=== PATIENT | female | born 1995 | race Caucasian/White ===

== ENCOUNTER 2018-03-24 10:13 | Emergency (ER) | payer OTHER ==
--- NOTE | 2018-03-24 12:33 | ED ---
Lower Extremity - HPI Summary HPI Summary: Patient here with left knee pain and swelling 3 weeks. He reports he's had this about once a year since 2014. He is not recalling acute incident to inflict pain swelling. In the past he's had an x-ray and was told to implement Rice which is helped with time. He's tried at this time and symptoms are lingering longer than usual. 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 He also feels that going up and down stairs his Bentyl more difficult as of late, with feelings of instability in the knee. Denies calf pain, swelling, numbness , tingling, weakness, chest pain, shortness of breath. He does admit his knee pain got worse after taking a 7 hour flight. He also admits to use of testosterone however reports he's had this knee pain prior to using testosterone. Denies smoking, history of cancer, personal or family history of clotting. - History of Current Complaint Hx Obtained From: Patient Pain Intensity: 3 <Bev Whalen - Last Filed: 03/24/18 18:05> <Loc Bui - Last Filed: 03/24/18 19:14> - History of Current Complaint Chief Complaint: EDExtremityLower Stated Complaint: LT KNEE PAIN Time Seen by Provider: 03/24/18 10:56 - Allergies/Home Medications Allergies/Adverse Reactions: Allergies Allergy/AdvReac Type Severity Reaction Status Date / Time No Known Allergies Allergy Verified 03/24/18 11:22 Home Medications: Home Medications NK [No Home Medications Reported] 03/24/18 [History Confirmed 03/24/18] PMH/Surg Hx/FS Hx/Imm Hx Previously Healthy: Yes Endocrine/Hematology History: Denies: Hx Anticoagulant Therapy, Hx Blood Disorders, Hx Coagulopothy Cardiovascular History: Denies: Hx Aneurysm, Hx Deep Vein Thrombosis, Hx Embolism Musculoskeletal History: Reports: Other Musculoskeletal History - Lt knee issues annual flair up since 2014 Infectious Disease History: No Infectious Disease History: Denies: Traveled Outside the [place] in Last 30 Days - Family History Known Family History: Positive: None - Social History Occupation: Employed Full-time - fast food server Lives: Dormitory/Roommates Alcohol Use: None Hx Substance Use: No Substance Use Type: Reports: None Hx Tobacco Use: No Smoking Status (MU): Never Smoked Tobacco <Bev Whalen - Last Filed: 03/24/18 18:05> Review of Systems Constitutional: Negative Negative: Fever, Chills, Fatigue Negative: Blurred Vision Negative: Sore Throat Cardiovascular: Negative Negative: Palpitations, Chest Pain Respiratory: Negative Negative: Shortness Of Breath, Cough Genitourinary: Negative Positive: Arthralgia, Myalgia, Decreased ROM, Edema Skin: Negative Neurological: Negative Psychological: Normal All Other Systems Reviewed And Are Negative: Yes <Bev Whalen - Last Filed: 03/24/18 18:05> Physical Exam Triage Information Reviewed: Yes Vital Signs On Initial Exam: Initial Vitals Temp Pulse Resp BP Pulse Ox 97.8 F 67 16 126/80 98 03/24/18 10:17 03/24/18 10:17 03/24/18 10:17 03/24/18 10:17 03/24/18 10:17 Vital Signs Reviewed: Yes Appearance: Positive: Well-Appearing, No Pain Distress - at rest, Well-Nourished Skin: Positive: Warm, Skin Color Reflects Adequate Perfusion, Dry - No erythema , ecchymosis, lesions over affected area Head/Face: Positive: Normal Head/Face Inspection Eyes: Positive: Normal, EOMI ENT: Positive: Hearing grossly normal, Pharynx normal - Mucosa moist Respiratory/Lung Sounds: Positive: Breath Sounds Present Cardiovascular: Positive: Pulses are Symmetrical in both Upper and Lower Extremities. Negative: Leg Edema Left, Leg Edema Right - Negative Homans bilaterally Musculoskeletal: Positive: Limited @ - Patient reports pain with flexion of left knee past 10; left anterior and posterior knee are swollen compared to right - bilateral joint spaces and popliteal space are tender to palpation; no gross deformity; baseline laxity is noted in right knee; special tests Limited due to patient's pain; equivocal Raymond's for positive medial meniscal injury Neurological: Positive: Normal, Sensory/Motor Intact, Alert, Oriented to Person Place, Time, CN Intact II-III Psychiatric: Positive: Normal <KobyBev - Last Filed: 03/24/18 18:05> Vital Signs On Initial Exam: Initial Vitals Temp Pulse Resp BP Pulse Ox 97.8 F 67 16 126/80 98 03/24/18 10:17 03/24/18 10:17 03/24/18 10:17 03/24/18 10:17 03/24/18 10:17 <Loc Bui - Last Filed: 03/24/18 19:14> Procedures - Procedure Summary Procedure Summary: Lt knee joint aspiration: Discussed risks and benefits w/ pt who agrees to continue w/ procedure Cleaned area with iodione - upon drying, Dr. Rubin injected with total of 15mL 1% lidocaine via medial approach between patella and femoral condyle - pt tolerated well An 18 gauge sterile needle was then inserted into same path with consistent aspiration pressure - initially scant blood was only aspirated material however synovial fluid soon followed for a total of 30cc fluid. Minimal blood loss. Area bandaged with sterile gauze and NEEL wrap followed by coban. Pt reports improvement of swelling and pain. <Bev Whalen - Last Filed: 03/24/18 18:05> Diagnostics - Vital Signs Vital Signs Temp Pulse Resp BP Pulse Ox 03/24/18 10:17 97.8 F 67 16 126/80 98 - Laboratory Result Diagrams: 03/24/18 13:33 03/24/18 13:33 Lab Statement: Any lab studies that have been ordered have been reviewed, and results considered in the medical decision making process. <Bev Whalen - Last Filed: 03/24/18 18:05> - Vital Signs Vital Signs Temp Pulse Resp BP Pulse Ox 03/24/18 10:17 97.8 F 67 16 126/80 98 - Laboratory Lab Results: Lab Results 03/24/18 03/24/18 03/24/18 Range/Units 13:33 13:33 13:33 WBC 6.4 (3.5-10.8) 10^3/ul RBC 4.64 (4.0-5.4) 10^6/ul Hgb 15.0 (12.0-16.0) g/dl Hct 43 (35-47) % MCV 92 (80-97) fL MCH 32 H (27-31) pg MCHC 35 (31-36) g/dl RDW 13 (10.5-15) % Plt Count 306 (150-450) 10^3/ul MPV 7.6 (7.4-10.4) um3 Neut % (Auto) 65.7 (38-83) % Lymph % (Auto) 24.2 L (25-47) % [place] % (Auto) 7.1 H (0-7) % Eos % (Auto) 2.0 (0-6) % Baso % (Auto) 1.0 (0-2) % Absolute Neuts (auto) 4.2 (1.5-7.7) 10^3/ul Absolute Lymphs (auto) 1.6 (1.0-4.8) 10^3/ul Absolute Monos (auto) 0.5 (0-0.8) 10^3/ul Absolute Eos (auto) 0.1 (0-0.6) 10^3/ul Absolute Basos (auto) 0.1 (0-0.2) 10^3/ul Absolute Nucleated RBC 0 10^3/ul Nucleated RBC % 0 ESR 22 H (0-14) mm/Hr Sodium 137 L (139-145) mmol/L Potassium 3.8 (3.5-5.0) mmol/L Chloride 101 (101-111) mmol/L Carbon Dioxide 28 (22-32) mmol/L Anion Gap 8 (2-11) mmol/L BUN 14 (6-24) mg/dL Creatinine 0.77 (0.51-0.95) mg/dL Est GFR ( Amer) 118.4 (>60) Est GFR (Non-Af Amer) 92.1 (>60) BUN/Creatinine Ratio 18.2 (8-20) Glucose 79 (70-100) mg/dL Lactic Acid 0.6 (0.5-2.0) mmol/L Uric Acid 6.4 (2.3-6.6) mg/dL Calcium 9.4 (8.6-10.3) mg/dL Total Bilirubin 0.70 (0.2-1.0) mg/dL AST 19 (13-39) U/L ALT 11 (7-52) U/L Alkaline Phosphatase 24 L (34-104) U/L C-Reactive Protein 9.89 H (< 5.00) mg/L Total Protein 7.5 (6.4-8.9) g/dL Albumin 4.2 (3.2-5.2) g/dL Globulin 3.3 (2-4) g/dL Albumin/Globulin Ratio 1.3 (1-3) Fluid Source Fluid Volume mL Fluid Color Fluid Appearance Fluid WBC (0 - 724023) /mcL Fluid RBC /mcL Fluid Tot Cell Count Fluid Neutrophils % Fluid Lymphocytes % Fluid Monocytes % Fluid Cell Count Rvw By Fluid Crystals Fluid Crystal Interp 03/24/18 03/24/18 Range/Units 16:10 16:10 WBC (3.5-10.8) 10^3/ul RBC (4.0-5.4) 10^6/ul Hgb (12.0-16.0) g/dl Hct (35-47) % MCV (80-97) fL MCH (27-31) pg MCHC (31-36) g/dl RDW (10.5-15) % Plt Count (150-450) 10^3/ul MPV (7.4-10.4) um3 Neut % (Auto) (38-83) % Lymph % (Auto) (25-47) % [place] % (Auto) (0-7) % Eos % (Auto) (0-6) % Baso % (Auto) (0-2) % Absolute Neuts (auto) (1.5-7.7) 10^3/ul Absolute Lymphs (auto) (1.0-4.8) 10^3/ul Absolute Monos (auto) (0-0.8) 10^3/ul Absolute Eos (auto) (0-0.6) 10^3/ul Absolute Basos (auto) (0-0.2) 10^3/ul Absolute Nucleated RBC 10^3/ul Nucleated RBC % ESR (0-14) mm/Hr Sodium (139-145) mmol/L Potassium (3.5-5.0) mmol/L Chloride (101-111) mmol/L Carbon Dioxide (22-32) mmol/L Anion Gap (2-11) mmol/L BUN (6-24) mg/dL Creatinine (0.51-0.95) mg/dL Est GFR ( Amer) (>60) Est GFR (Non-Af Amer) (>60) BUN/Creatinine Ratio (8-20) Glucose (70-100) mg/dL Lactic Acid (0.5-2.0) mmol/L Uric Acid (2.3-6.6) mg/dL Calcium (8.6-10.3) mg/dL Total Bilirubin (0.2-1.0) mg/dL AST (13-39) U/L ALT (7-52) U/L Alkaline Phosphatase (34-104) U/L C-Reactive Protein (< 5.00) mg/L Total Protein (6.4-8.9) g/dL Albumin (3.2-5.2) g/dL Globulin (2-4) g/dL Albumin/Globulin Ratio (1-3) Fluid Source Synovial fluid Fluid Volume 25 mL Fluid Color Red Fluid Appearance Bloody Fluid WBC 5840 (0 - 651987) /mcL Fluid RBC 47002 /mcL Fluid Tot Cell Count 100 Fluid Neutrophils 97 % Fluid Lymphocytes 1 % Fluid Monocytes 2 % Fluid Cell Count Rvw By Pending Fluid Crystals Pending Fluid Crystal Interp Pending Result Diagrams: 03/24/18 13:33 03/24/18 13:33 Lab Statement: Any lab studies that have been ordered have been reviewed, and results considered in the medical decision making process. <Loc Bui - Last Filed: 03/24/18 19:14> Lower Extremity Course/Dx - Course Course Of Treatment: XR:large joint effusion - no fx, no dislocation. Joint aspiration Fluid results pending. Signed out to Loc Bui PA-C pending assessment of count to decide if he needs anbx today. Labs are unremarkable otherwise except for slightly elevated ESR. Continue NSAIDs (naproxen 500 sent to pharmacy) and referral to orthopedics. Suspect possible meniscal injury with recurrence but fluid count may shed light on another diagnosis. COndition : stable <Bev Whalen - Last Filed: 03/24/18 18:05> <Loc Bui - Last Filed: 03/24/18 19:14> - Diagnoses Provider Diagnoses: Effusion, left knee Discharge - Sign-Out/Discharge Documenting (check all that apply): Discharge/Admit/Transfer, Sign-Out Patient Signing out patient TO: Loc Bui - Billing Disposition and Condition Condition: STABLE Disposition: HOME <Bev Whalen - Last Filed: 03/24/18 18:05> - Billing Disposition and Condition Condition: STABLE Disposition: HOME <Loc Bui - Last Filed: 03/24/18 19:14> - Discharge Plan Condition: Stable Disposition: HOME Patient Education Materials: Swollen Knee Joint (ED) Referrals: Dianna Michael MD [Medical Doctor] - Additional Instructions: Follow-up with orthopedics. Return to ED for any new or worsening symptoms
--- NOTE | 2018-03-24 12:52 | RAD ---
INDICATION: Left knee pain and swelling. TECHNIQUE: 4 views of the left knee were obtained. FINDINGS: The bones are in normal alignment. There is a large joint effusion present. No fracture is seen. Joint spaces appear maintained. IMPRESSION: LARGE JOINT EFFUSION.
[2018-03-24] MEDS ORDERED: Lidocaine 1% INJ* 10 MG/ML 30 ML SDV ONE (13:09)
[2018-03-24] MEDS ORDERED: Naproxen TAB* 250 MG PO ONE (13:25)
[2018-03-24 13:53] LABS: ABS Basophils 0.1 10^3/ul (0-0.2); ABS Eosinophils 0.1 10^3/ul (0-0.6); ABS Lymphocytes 1.6 10^3/ul (1.0-4.8); ABS Monocytes 0.5 10^3/ul (0-0.8); ABS Neutrophils 4.2 10^3/ul (1.5-7.7); ABS Nucleated RBC 0 10^3/ul; Hematocrit 43 % (35-47); Lymphocyte % 24.2 % (25-47); Mean Corpuscular HGB Conc 35 g/dl (31-36); Mean Corpuscular Hemoglobin 32 pg (27-31); Mean Corpuscular Volume 92 fL (80-97); Mean Platelet Volume 7.6 um3 (7.4-10.4); Nucleated Red Blood Cells % 0; Platelet Count 306 10^3/ul (150-450); Red Blood Count 4.64 10^6/ul (4.0-5.4); Red Cell Distribution Width 13 % (10.5-15); White Blood Count 6.4 10^3/ul (3.5-10.8)
[2018-03-24 14:17] LABS: EGFR Non-African American 92.1 (>60); Uric Acid 6.4 mg/dL (2.3-6.6)
[2018-03-24 19:49] VITALS: BP 130/67
--- NOTE | 2018-03-25 13:40 | ED ---
Michaela Thornton Nilda, scribed for Leon Rubin MD on 03/24/18 at 1624 . Progress - Progress Note Progress Note: Joint aspiration of left knee: Administered total of 15 mL 1% Lido. Sterile prep and drape with Betadine. Risks and benefits including infection and bleeding were discussed. The leg was held fully extended. 18 gauge needle was advanced and 30 mL of sero-sanguinous fluid was withdrawn. Re-Evaluation - Re-Evaluation First Eval Re-Evaluation Time: 18:23 Comment: Pt is ambulatory and wihtout pain. Pt states knee feels good. Course/Dx - Course Course Of Treatment: Joint aspiration of left knee: Administered total of 15 mL 1% Lido. Sterile prep and drape with Betadine. Risks and benefits including infection and bleeding were discussed. The leg was held fully extended. 18 gauge needle was advanced and 30 mL of sero-sanguinous fluid was withdrawn. - Diagnoses Provider Diagnoses: Effusion, left knee Discharge - Sign-Out/Discharge Documenting (check all that apply): Discharge/Admit/Transfer - home - Discharge Plan Condition: Stable Disposition: HOME Prescriptions: Naproxen [Naproxen 250 mg tab] 250 mg PO BID 15 Days #30 tablet Patient Education Materials: Swollen Knee Joint (ED) Forms: *Work Release Referrals: Dianna Michael MD [Medical Doctor] - Additional Instructions: Follow-up with orthopedics. Return to ED for any new or worsening symptoms The documentation as recorded by the Michaela charles Nilda accurately reflects the service I personally performed and the decisions made by , Leon Rubin MD.
== END 2018-03-24 19:48 | disposition home or self-care (01) ==
LOC: ED 10:13 → EDSEX 10:13 → ED 19:48
DX: M25.462 Effusion, left knee (principal); M25.562 Pain in left knee
CPT/HCPCS: 20610; 36415; 80053; 83605; 84550; 85025; 85652; 86140; 86617; 86618; 87070; 87205; 87640; 87641; 89051; 89060; 99282; A9270-GY

== ENCOUNTER 2018-10-02 08:30 | Emergency (ER) | payer OTHER ==
[2018-10-02 08:44] VITALS: BP 137/87
--- NOTE | 2018-10-02 09:09 | ED ---
Skin Complaint - HPI Summary HPI Summary: 23 yo WF (transitioning to male) c/o sudden right flank painful red rash that started 2 days ago, vesicular, raised in Right T6-7 dermatome, recently adopted kittens, and other external stressors with lack of sleep - History of Current Complaint Chief Complaint: UCSkin Time Seen by Provider: 10/02/18 08:40 Stated Complaint: BACK PAIN Hx Obtained From: Patient Hx Last Menstrual Period: on testerone Timing: Constant Onset Severity: Moderate Current Severity: Moderate Pain Intensity: 7 - Allergy/Home Medications Allergies/Adverse Reactions: Allergies Allergy/AdvReac Type Severity Reaction Status Date / Time No Known Allergies Allergy Verified 10/02/18 08:37 Home Medications: Home Medications Testosterone Cypionate 100 mg IM SEE INSTRUCTIONS 10/02/18 [History Confirmed ] PMH/Surg Hx/FS Hx/Imm Hx Previously Healthy: Yes Endocrine/Hematology History: Denies: Hx Anticoagulant Therapy, Hx Blood Disorders, Hx Diabetes Cardiovascular History: Denies: Hx Aneurysm, Hx Deep Vein Thrombosis, Hx Embolism, Hx Hypertension, Hx Pacemaker/ICD Respiratory History: Denies: Hx Asthma History: Denies: Hx Renal Disease Musculoskeletal History: Reports: Other Musculoskeletal History - Lt knee issues annual flair up since 2014 Sensory History: Denies: Hx Hearing Aid Psychiatric History: Denies: Hx Panic Disorder Infectious Disease History: No Infectious Disease History: Denies: Traveled Outside the [place] in Last 30 Days - Family History Known Family History: Positive: None - Social History Alcohol Use: Daily Alcohol Amount: 2 glasses wine Hx Substance Use: No Substance Use Type: Reports: Marijuana Substance Use Comment - Amount & Last Used: occasionally Hx Tobacco Use: No Smoking Status (MU): Never Smoked Tobacco Review of Systems Constitutional: Negative Eyes: Negative ENT: Negative Cardiovascular: Negative Respiratory: Negative Gastrointestinal: Negative Musculoskeletal: Negative Positive: Rash Neurological: Negative Psychological: Normal All Other Systems Reviewed And Are Negative: Yes Physical Exam - Summary Physical Exam Summary: Vital Signs Reviewed: Yes Appearance: Positive: Well-Appearing Skin: Positive: raised erythematous vesicular rash on T6-T7 dermatome Head/Face: Positive: Normal Head/Face Inspection Eyes: Positive: EOMI, KELSEA ENT: Positive: Hearing grossly normal, Pharynx normal, TMs normal Neck: Positive: Supple, No Lymphadenopathy Respiratory/Lung Sounds: Positive: Clear to Auscultation Cardiovascular: Positive: RRR, S1, S2 Abdomen Description: Positive: Nontender, Soft Bowel Sounds: Positive: Present Musculoskeletal: Positive: Normal Neurological: Positive: CN Intact II-III Psychiatric: Positive: Normal Vital Signs On Initial Exam: Initial Vitals Temp Pulse Resp BP Pulse Ox 36.9 C 79 18 137/87 100 10/02/18 08:38 10/02/18 08:38 10/02/18 08:38 10/02/18 08:38 10/02/18 08:38 Diagnostics - Vital Signs Vital Signs Temp Pulse Resp BP Pulse Ox 10/02/18 08:38 36.9 C 79 18 137/87 100 - Laboratory Lab Statement: Any lab studies that have been ordered have been reviewed, and results considered in the medical decision making process. Course/Dx - Course Assessment/Plan: New onset Herpes Zoster- Valtrex and Zovirax as directed - Diagnoses Provider Diagnoses: Zoster Discharge - Sign-Out/Discharge Documenting (check all that apply): Patient Departure All imaging exams completed and their final reports reviewed: No Studies - Discharge Plan Condition: Stable Disposition: HOME Prescriptions: Acyclovir OINT 5%(NF) [Zovirax Oint 5%(NF)] 1 applic TOPICAL .SIX TIMES A DAY 7 Days #1 tube ValACYclovir (*) [Valtrex 1 GM(*)] 1 gm PO TID 7 Days #21 tab Patient Education Materials: Shingles (ED) Additional Instructions: return to clinic if sx worsen - Billing Disposition and Condition Condition: STABLE Disposition: Home
== END 2018-10-02 09:00 | disposition home or self-care (01) ==
LOC: UCEAST 08:30
DX: B02.9 Zoster without complications (principal)
CPT/HCPCS: 99212; G0463

== ENCOUNTER 2019-05-03 18:43 | Emergency (ER) | payer OTHER ==
[2019-05-03 19:16] VITALS: BP 137/76
--- NOTE | 2019-05-03 20:00 | UC ---
Skin Complaint HPI - HPI Summary HPI Summary: 24 yo noted swollen /tender lump today on neck no recent fever no sore throat no malaise - History of Current Complaint Chief Complaint: UCSkin Time Seen by Provider: 05/03/19 19:52 Stated Complaint: LUMP ON NECK Hx Obtained From: Patient Hx Last Menstrual Period: on testerone Onset/Duration: Gradual Onset Skin Exposure Onset/Duration: Hours Ago Timing: Constant Onset Severity: Mild Current Severity: Mild Pain Intensity: 0 Pain Scale Used: 0-10 Numeric Location: Diffuse, Other - neck Aggravating Factor(s): Touch Alleviating Factor(s): Nothing Associated Signs & Symptoms: Positive: Tenderness. Negative: Nausea, Vomiting, Numbness, Thirst, Diaphoresis, Weakness, Pallor, Shivering, Difficulty Breathing , Fever, Chills, Cough, Wheezing, Chest Pain, Hoarseness, Throat Tightening, Rash, Abdominal Pain, Lightheadedness, Syncope, Drainage, Bruising, Red Streaks , Joint Swelling - Allergy/Home Medications Allergies/Adverse Reactions: Allergies Allergy/AdvReac Type Severity Reaction Status Date / Time No Known Allergies Allergy Verified 05/03/19 19:17 PMH/Surg Hx/FS Hx/Imm Hx Previously Healthy: Yes Other History Of: Negative For: Anticoagulant Therapy - Surgical History Surgical History: None - Family History Known Family History: Positive: Non-Contributory - Social History Alcohol Use: Daily Alcohol Amount: 2 glasses wine Substance Use Type: Marijuana Substance Use Comment - Amount & Last Used: occasionally Smoking Status (MU): Never Smoked Tobacco Review of Systems All Other Systems Reviewed And Are Negative: Yes Constitutional: Positive: Negative Skin: Positive: Negative Eyes: Positive: Negative ENT: Positive: Negative Respiratory: Positive: Negative Cardiovascular: Positive: Negative Gastrointestinal: Positive: Negative Genitourinary: Positive: Negative Motor: Positive: Negative Neurovascular: Positive: Negative Musculoskeletal: Positive: Negative Neurological: Positive: Negative Psychological: Positive: Negative Physical Exam Triage Information Reviewed: Yes Appearance: Well-Appearing, No Pain Distress, Well-Nourished Vital Signs: Initial Vital Signs Temp 98.5 F 05/03/19 19:11 Pulse 56 05/03/19 19:11 Resp 18 05/03/19 19:11 BP 137/76 05/03/19 19:11 Pulse Ox 100 05/03/19 19:11 Vital Signs Reviewed: Yes Eyes: Positive: Conjunctiva Clear ENT: Positive: Hearing grossly normal, Pharyngeal erythema - slight, TMs normal , Uvula midline. Negative: Nasal congestion, Nasal drainage, Tonsillar swelling , Tonsillar exudate, Trismus, Muffled voice, Hoarse voice, Sinus tenderness Neck: Positive: Supple, Enlarged Nodes @ - see image, Other: - see image Respiratory: Positive: Lungs clear, Normal breath sounds, No respiratory distress Cardiovascular: Positive: RRR, No Murmur Musculoskeletal: Positive: ROM Intact, No Edema Neurological: Positive: Alert Psychological Exam: Normal Skin Exam: Other - facial acne Images Head: 1 - tender LN 2 - tender LN Course/Dx - Diagnoses Provider Diagnosis: Lymphadenopathy of head and neck Discharge - Sign-Out/Discharge Documenting (check all that apply): Patient Departure All imaging exams completed and their final reports reviewed: No Studies - Discharge Plan Condition: Stable Disposition: HOME Patient Education Materials: Lymphadenopathy (ED) Referrals: [facility] [place] [facility] [Outside] - 2 Weeks Additional Instructions: The small marble sized lump you notice on your neck feels like a swollen lymphnode to me I suspect a viral illness as the cause recheck for fever recheck for worsening symptoms RECHECK IN 2 WEEKS IF LUMP NOT GONE tylenol or advil if needed heat - Billing Disposition and Condition Condition: STABLE Disposition: Home
[2019-05-04 12:42] LABS: HIV 4th Generation Negative (Negative)
== END 2019-05-03 20:19 | disposition home or self-care (01) ==
LOC: UCEAST 18:43
DX: R59.0 Localized enlarged lymph nodes (principal)
CPT/HCPCS: 36415; 87389; 99211; G0463

== ENCOUNTER 2019-05-24 09:56 | Emergency (ER) | payer OTHER ==
[2019-05-24 10:15] VITALS: BP 107/58
--- NOTE | 2019-05-24 12:24 | UC ---
Abdominal Pain Female HPI - HPI Summary HPI Summary: pelvic pain x 1 week , pain is severe 5 out of 10 , no radiation feels like cramps, was seen here 2 days ago , r/o UTI , requesting an pelvic us today nothing makes it better or worse, no fever, no chills no vaginal bleeding, no dysuria , was r/o on last visit pt. is trans gender , on testosterone - History of Current Complaint Chief Complaint: UCAbdominalPain Stated Complaint: RECHECK ABD PAIN Time Seen by Provider: 05/24/19 10:44 Hx Obtained From: Patient Hx Last Menstrual Period: 5 years ago Onset/Duration: Gradual Onset, Lasting Days - 7, Still Present Timing: Constant Severity Initially: Moderate Severity Currently: Moderate Pain Intensity: 5 Location: Other - pelvic pain Radiates: No Character: Cramping Aggravating Factor(s): Nothing Alleviating Factor(s): Nothing Associated Signs and Symptoms: Negative: Fever, Cough, Chest Pain, Dizzy, Constipation, Blood in Stool, Urinary Symptoms, Decreased Appetite, Vaginal Bleeding, Vaginal Discharge, Nausea, Vomiting, Diarrhea Allergies/Adverse Reactions: Allergies Allergy/AdvReac Type Severity Reaction Status Date / Time No Known Allergies Allergy Verified 05/24/19 10:12 Home Medications: Home Medications Ibuprofen 600 mg PO ONCE PRN 05/24/19 [History Confirmed 05/24/19] PMH/Surg Hx/FS Hx/Imm Hx Previously Healthy: Yes Cardiovascular History: Cardiac Disease, Hypertension, Pacemaker/ICD, Congestive Heart Failure Respiratory History: COPD, Asthma GI/ History: Gastroesophageal Reflux, Ulcer, Gastrointestional Bleed, Gall Bladder Disease Neurological History: TIA, CVA Other History Of: Negative For: Anticoagulant Therapy - Surgical History Surgical History: None - Family History Known Family History: Positive: None, Non-Contributory - Social History Alcohol Use: Daily Alcohol Amount: 2 glasses wine Substance Use Type: Marijuana Substance Use Comment - Amount & Last Used: occasionally Smoking Status (MU): Never Smoked Tobacco Review of Systems All Other Systems Reviewed And Are Negative: Yes Constitutional: Positive: Negative Skin: Positive: Negative Eyes: Positive: Negative ENT: Positive: Negative Gastrointestinal: Positive: Other - pelvic pain Genitourinary: Positive: Negative Motor: Positive: Negative Is Patient Immunocompromised?: No Physical Exam Triage Information Reviewed: Yes Appearance: Well-Appearing, No Pain Distress, Well-Nourished Vital Signs: Initial Vital Signs Temp 98.3 F 05/24/19 10:09 Pulse 57 05/24/19 10:09 Resp 18 05/24/19 10:09 BP 107/58 05/24/19 10:09 Pulse Ox 100 05/24/19 10:09 Vital Signs Reviewed: Yes Eye Exam: Normal Eyes: Positive: Conjunctiva Clear ENT Exam: Normal ENT: Positive: Normal ENT inspection, Hearing grossly normal, Pharynx normal Neck: Positive: Supple, Nontender, No Lymphadenopathy Respiratory: Positive: Chest non-tender, Lungs clear, Normal breath sounds Cardiovascular: Positive: RRR, No Murmur, Pulses Normal Abdomen Description: Positive: Nontender, Soft. Negative: CVA Tenderness (R), CVA Tenderness (L), Distended, Guarding Bowel Sounds: Positive: Present Skin Exam: Normal Diagnostics - Laboratory Lab Results: pelvic US : IMPRESSION: SMALL AMOUNT OF FREE INTRAPERITONEAL FLUID OTHERWISE UNREMARKABLE. Abd Pain Female Course/Dx - Differential Dx/Diagnosis Provider Diagnosis: Pelvic pain Discharge - Sign-Out/Discharge Documenting (check all that apply): Patient Departure All imaging exams completed and their final reports reviewed: Yes - Discharge Plan Condition: Stable Disposition: HOME Patient Education Materials: Pelvic Pain (ED) Referrals: No Primary Care Phys,NOPCP [Primary Care Provider] - 7 Days Additional Instructions: normal transvagianl pelvic US - Billing Disposition and Condition Condition: STABLE Disposition: Home
== END 2019-05-24 12:17 | disposition home or self-care (01) ==
LOC: UCEAST 09:56
DX: R10.2 Pelvic and perineal pain (principal); I10 Essential (primary) hypertension; I50.9 Heart failure, unspecified; J44.9 Chronic obstructive pulmonary disease, unspecified; K21.9 Gastro-esophageal reflux disease without esophagitis; Z86.73 Personal history of transient ischemic attack (TIA), and cerebral infarction without residual deficits; Z95.0 Presence of cardiac pacemaker
CPT/HCPCS: 76830; 99211; G0463

== ENCOUNTER 2019-05-25 07:35 | Emergency (ER) | payer OTHER ==
[2019-05-25] MEDS ORDERED: NS 0.9% 1000 ML** 1,000 ML IV ONE (08:02)
[2019-05-25] MEDS ORDERED: Ketorolac INJ* 30 MG/ML 1 ML VIAL IV PUSH ONE (08:02)
--- NOTE | 2019-05-25 08:07 | ED ---
GI/ HPI - HPI Summary HPI Summary: 24-year-old transgender person presents with lower abdominal pain for the past week. patient prefers to be identified as a male. he states that he had ultrasound done yesterday that was normal. he states he's been getting a bloating-like sensation. he states he had constipation and is now having diarrhea. No blood in his stool. No dark tarry stool. He is currently on testosterone. hasn't had a period in 5 years. He states once a month gets menstrual cramping that never lasted longer than a day. Denies any dysuria. No vaginal discharge. No fever. No nausea or vomiting. Has tried some ibuprofen which has helped occasionally. - History of Current Complaint Chief Complaint: EDAbdPain Time Seen by Provider: 05/25/19 07:44 Stated Complaint: ABDOMINAL PAIN/BLOATING PER PT Hx Last Menstrual Period: 5 and a half years ago Pain Intensity: 7 - Allergy/Home Medications Allergies/Adverse Reactions: Allergies Allergy/AdvReac Type Severity Reaction Status Date / Time No Known Allergies Allergy Verified 05/25/19 07:42 PMH/Surg Hx/FS Hx/Imm Hx Endocrine/Hematology History: Denies: Hx Diabetes, Hx Thyroid Disease Cardiovascular History: Denies: Hx Hypertension Respiratory History: Denies: Hx Asthma, Hx Chronic Obstructive Pulmonary Disease (COPD) GI History: Denies: Hx Ulcer Infectious Disease History: No Infectious Disease History: Denies: Hx Hepatitis, Hx Human Immunodeficiency Virus (HIV), Traveled Outside the [place] in Last 30 Days - Family History Known Family History: Positive: Non-Contributory - Social History Alcohol Use: Weekly Substance Use Type: Reports: Marijuana Smoking Status (MU): Never Smoked Tobacco Review of Systems Negative: Fever Negative: Chest Pain Negative: Shortness Of Breath Positive: Abdominal Pain, Diarrhea. Negative: Vomiting, Nausea All Other Systems Reviewed And Are Negative: Yes Physical Exam Triage Information Reviewed: Yes Vital Signs On Initial Exam: Initial Vitals Temp Pulse Resp BP Pulse Ox 98.3 F 67 16 147/100 100 05/25/19 07:38 05/25/19 07:38 05/25/19 07:38 05/25/19 07:38 05/25/19 07:38 Vital Signs Reviewed: Yes Appearance: Positive: Well-Appearing Skin: Positive: Warm, Dry Head/Face: Positive: Normal Head/Face Inspection Eyes: Positive: Normal, Conjunctiva Clear ENT: Positive: Pharynx normal Respiratory/Lung Sounds: Positive: Clear to Auscultation, Breath Sounds Present Cardiovascular: Positive: Normal, RRR Abdomen Description: Positive: Soft, Other: - tenderness suprapubic Bowel Sounds: Positive: Present Musculoskeletal: Positive: Normal Neurological: Positive: Normal Psychiatric: Positive: Normal Diagnostics - Vital Signs Vital Signs Temp Pulse Resp BP Pulse Ox 05/25/19 07:38 98.3 F 67 16 147/100 100 - Laboratory Result Diagrams: 05/25/19 08:06 05/25/19 08:06 Lab Statement: Any lab studies that have been ordered have been reviewed, and results considered in the medical decision making process. - CT abd CT Interpretation Completed By: Radiologist Summary of CT Findings: IMPRESSION: FATTY INFILTRATION OF THE LIVER. NO ACUTE CT PATHOLOGY VISUALIZED ABDOMEN OR PELVIS. Re-Evaluation - Re-Evaluation First Eval Re-Evaluation Time: 09:24 Change: Improved Comment: feeling better GIGU Course/Dx - Course Course Of Treatment: 24-year-old transgender person presents with lower abdominal pain for the past week. patient prefers to be identified as a male. he states that he had ultrasound done yesterday that was normal. he states he' s been getting a bloating-like sensation. he states he had constipation and is now having diarrhea. No blood in his stool. No dark tarry stool. He is currently on testosterone. hasn't had a period in 5 years. He states once a month gets menstrual cramping that never lasted longer than a day. Denies any dysuria. No vaginal discharge. No fever. No nausea or vomiting. Has tried some ibuprofen which has helped occasionally. On exam tenderness suprapubic. Discuss getting a CT versus observation and patient wants to get a CT. wbc 5. crp normal. electrolytes normal. urine likely contaminant. CT shows no acute findings. [facility] patient understand and agrees with plan. - Diagnoses Differential Diagnoses - Female: Gastroenteritis (Viral), Ovarian Cyst, Urinary Tract Infection Provider Diagnoses: Abdominal pain Discharge - Sign-Out/Discharge Documenting (check all that apply): Patient Departure Patient Received Moderate/Deep Sedation with Procedure: No - Discharge Plan Condition: Good Disposition: HOME Patient Education Materials: Abdominal Pain (ED) Referrals: No Primary Care Phys,NOPCP [Primary Care Provider] - Additional Instructions: Take ibuprofen or Tylenol for pain as needed every 6 hours [facility] Return to ED if develop any new or worsening symptoms - Billing Disposition and Condition Condition: GOOD Disposition: Home
[2019-05-25 08:21] LABS: ABS Basophils 0.1 10^3/ul (0-0.2); ABS Eosinophils 0.1 10^3/ul (0-0.6); ABS Lymphocytes 1.7 10^3/ul (1.0-4.8); ABS Monocytes 0.5 10^3/ul (0-0.8); ABS Neutrophils 2.7 10^3/ul (1.5-7.7); Eosinophil % 2.6 %; Hematocrit 44 % (35-47); Hemoglobin 15.8 g/dL (12.0-16.0); Lymphocyte % 33.5 %; Mean Corpuscular HGB Conc 36 g/dL (31-36); Mean Corpuscular Hemoglobin 32 pg (27-31); Mean Corpuscular Volume 91 fL (80-97); Mean Platelet Volume 8.2 fL (7.4-10.4); Nucleated Red Blood Cells % 0.1; Platelet Count 241 10^3/uL (150-450); Red Blood Count 4.88 10^6 /uL (3.70-4.87); Red Cell Distribution Width 13 % (10-15)
[2019-05-25 08:24] LABS: Urine Appearance Clear; Urine Bacteria Absent (Absent); Urine Bilirubin Negative (Negative); Urine Blood Negative (Negative); Urine Color Colorless; Urine Glucose Negative (Negative); Urine Ketones Negative (Negative); Urine Nitrite Negative (Negative); Urine Protein Negative (Negative); Urine Red Blood Cell Absent (Absent); Urine Specific Gravity 1.002 (1.010-1.030); Urine Urobilinogen Negative (Negative); Urine White Blood Cell Trace(0-5/hpf) (Absent)
[2019-05-25 08:36] LABS: Albumin 4.6 g/dL (3.2-5.2); Albumin/Globulin Ratio 1.6 (1-3); BUN/Creatinine Ratio 15.9 (8-20); C Reactive Protein 1.72 mg/L (<8.01); Calcium 9.6 mg/dL (8.6-10.3); EGFR Non-African American 84.3 (>60); Globulin 2.9 g/dL (2-4); Potassium 4.2 mmol/L (3.5-5.0); Total Bilirubin 0.7 mg/dL (0.2-1.0); Total Protein 7.5 g/dL (6.4-8.9)
[2019-05-25 08:40] LABS: HCG Pregnancy 0.65 mIU/mL
[2019-05-25] MEDS ORDERED: Iohexol 300* (CONTRAST) 10 ML SDV IV ONE (09:15)
[2019-05-25 11:34] VITALS: BP 123/69
== END 2019-05-25 11:34 | disposition home or self-care (01) ==
LOC: MERGE 07:35 → ED 07:35
DX: R10.30 Lower abdominal pain, unspecified (principal); R19.7 Diarrhea, unspecified
CPT/HCPCS: 36415; 74177; 80053; 81003; 81015; 83605; 83690; 84702; 85025; 86140; 87086; 96361; 96374; 99282; J1885; Q9967

== ENCOUNTER 2021-09-13 06:57 | Observation (INO) ==
[~2021-09-13 06:57] MED LIST: Buffered Lidocaine 1% SYRIN 1 ml INTRADERM ONE; Scopolamine PATCH Remove NOTE PATCH OFF SCH
[2021-09-13] MEDS ORDERED: ceFOXitin 2 GM IVPREMIX 2 GM/50 ML BAG ONE (07:11)
[2021-09-13] MEDS: Lactated Ringers 1000 ml BAG 1,000 ML IV SCH ×2 (07:39→13:02)
[2021-09-13] MEDS ORDERED: fentaNYL 250 mcg/5 ml 50 MCG/ML 5 ml VIAL (250 MCG) ONE (08:25)
[2021-09-13] MEDS ORDERED: Propofol 10 MG/ML 20 ML BTL ONE (08:25)
[2021-09-13] MEDS ORDERED: Dexamethasone IV 4 MG/ML VIAL 1 ml VIAL ONE (08:25)
[2021-09-13] MEDS ORDERED: Ondansetron 4 mg VIAL 2 MG/ML 2 ml VIAL ONE (08:25)
[2021-09-13] MEDS ORDERED: Lidocaine 2% PF 5 ML VIAL ONE (08:25)
[2021-09-13] MEDS ORDERED: Rocuronium 50 mg VIAL 10 mg/ml 5 ml VIAL (50 mg) ONE ×2 (08:25→09:45)
[2021-09-13] MEDS ORDERED: Midazolam 2 mg/2 ml VIAL 1 mg/ml 2 ml VIAL (2 mg) ONE (08:25)
[2021-09-13] MEDS ORDERED: Bupivacaine 0.5% SDV PF 30ML VIAL ONE (08:38)
[2021-09-13] MEDS ORDERED: Bupivacaine 0.25% EPI 200,000 30 ML SDV ONE (08:39)
[2021-09-13] MEDS ORDERED: Ondansetron 4 mg VIAL 2 MG/ML 2 ml VIAL IV PRN ×4 (08:52→12:52)
[2021-09-13] MEDS ORDERED: diPHENhydraMINE IV 50 MG/ML 1 ml VIAL (BENADRYL) IV PRN ×2 (08:52→12:52)
[2021-09-13] MEDS ORDERED: fentaNYL 100 mcg/2 ml 50 MCG/ML VIAL IV PRN ×2 (08:52→12:51)
[2021-09-13] MEDS ORDERED: Prochlorperazine 5 mg/ml 2 ml VIAL (10 mg) IV PRN ×2 (08:52→12:52)
[2021-09-13] MEDS ORDERED: DiMENhydriNATE IV 50 mg/ml 1 ml VIAL IV PUSH PRN ×2 (08:52→12:52)
[2021-09-13] MEDS ORDERED: Acetaminophen IV 1 GM/100ML 100 ML IV PRN (08:52)
[2021-09-13] MEDS ORDERED: Naloxone 0.4 mg VIAL 0.4 mg/ml 1 ml VIAL IV PRN ×2 (08:52→12:51)
[2021-09-13] MEDS ORDERED: Remifentanil 2 MG VIAL ONE (09:51)
[2021-09-13] MEDS ORDERED: Acetaminophen IV 1 GM/100ML 100 ML IV ONE (11:20)
[2021-09-13] MEDS ORDERED: HYDROmorphone 0.5 MG/0.5 ML SYRINGE IV SLOW PU PRN ×2 (11:27→12:52)
[2021-09-13] MEDS ORDERED: oxyCODONE/Acetamin 5/325 mg TAB PO PRN ×2 (11:27→12:52)
[2021-09-13] MEDS: HYDROmorphone 1 MG/1 ML SYRINGE IV PRN ×4 (11:31→12:13)
[2021-09-13] MEDS ORDERED: HYDROmorphone 1 MG/1 ML SYRINGE ONE (11:31)
[2021-09-13] MEDS ORDERED: Lactated Ringers 1000 ml BAG 1,000 ML IV SCH ×2 (12:00→13:00)
[2021-09-13] MEDS ORDERED: Scopolamine PATCH Remove NOTE PATCH OFF SCH (13:00)
[2021-09-13 15:12] VITALS: BP 136/74
[2021-09-13 16:50] LABS: Hematocrit 45 % (35-47); Hemoglobin 15.9 g/dL (12.0-16.0)
== END 2021-09-13 17:25 | disposition home or self-care (01) ==
LOC: SSU 06:57 → OR 06:57
PROVIDERS: ADMIT Obstetrics & Gynecology; ATTEND Obstetrics & Gynecology